=== PATIENT | female | born 1945 | race Caucasian/White ===

== ENCOUNTER 2016-06-22 13:07 | Emergency (ER) | payer OTHER ==
[2016-06-22] MEDS ORDERED: Albuterol/Ipratropium NEB.SOL* Albuterol 2.5 MG/Ipratropium 0.5 MG 3 ML INH ONE ×2 (14:25→16:01)
[2016-06-22 14:46] LABS: Hematocrit 40 % (35-47); Hemoglobin 13.4 g/dl (12.0-16.0); Mean Corpuscular HGB Conc 33 g/dl (31-36); Mean Corpuscular Hemoglobin 29 pg (27-31); Mean Corpuscular Volume 88 fL (80-97); Mean Platelet Volume 6 um3 (7.4-10.4); Red Blood Count 4.57 10^6/ul (4.0-5.4); Red Cell Distribution Width 13 % (10.5-15); White Blood Count 5.7 10^3/ul (3.5-10.8)
[2016-06-22 15:03] LABS: Troponin I 0.01 ng/mL (<0.04)
[2016-06-22 15:04] LABS: Albumin 4.2 g/dL (3.2-5.2); BUN/Creatinine Ratio 15.4 (8-20); Calcium 9.2 mg/dL (8.6-10.3); EGFR African American 93.1 (>60); EGFR Non-African American 72.4 (>60); Globulin 3.5 g/dL (2-4); Potassium 4.3 mmol/L (3.5-5.0); Total Bilirubin 0.6 mg/dL (0.2-1.0); Total Protein 7.7 g/dL (6.4-8.9)
--- NOTE | 2016-06-22 15:37 | RAD ---
HISTORY: Shortness of breath COMPARISONS: April 22, 2015 VIEWS: 2: Frontal dual-energy and lateral views of the chest. FINDINGS: CARDIOMEDIASTINAL SILHOUETTE: The cardiomediastinal silhouette is normal. BEULAH: The beulah are normal. PLEURA: The costophrenic angles are sharp. No pleural abnormalities are noted. LUNG PARENCHYMA: There is hyperinflation with flattening of the diaphragm and expansion of the AP diameter of the chest. ABDOMEN: The upper abdomen is clear. There is no subphrenic gas. BONES AND SOFT TISSUES: The patient is status post median sternotomy OTHER: None. IMPRESSION: HYPERINFLATION, CONSISTENT WITH COPD. NO ACTIVE CARDIOPULMONARY DISEASE.
[2016-06-22] MEDS ORDERED: methylPREDNISolone SOD SUCC* 125 MG 2 ML VIAL IV ONE (16:01)
[2016-06-22] MEDS ORDERED: Albuterol HFA INHALER* 8 gm MDI INH SCH (19:00)
[2016-06-22] MEDS ORDERED: Albuterol HFA INHALER* 8 gm MDI INH ONE (19:26)
[2016-06-22 19:43] VITALS: BP 154/70
--- NOTE | 2016-06-23 11:28 | ED ---
Lazaro Sahu Matthew, scribed for Celso Mcfarlane MD on 06/22/16 at 1548 . Shortness of Breath - HPI Summary HPI Summary: A 71 y/o female presents to the ED with SOB upon exertion since 3 weeks ago, which worsened in the last 2 days. Today, the patient had sudden SOB while trying to walk up a flight of stairs. She denies chest pain, cough, fever, chills, URI, and pedal edema. She is a former smoker and use to smoke a ppd for 40 years. Hx of COPD. She is not on home oxygen, but is on spiriva. She had a mitral valve replacement in 2005. The patient had a recent root canal for an infected tooth; however the root canal was unsuccessful and she has a follow-up appointment in [place]. - History of Current Complaint Chief Complaint: EDShortnessOfBreath Time Seen by Provider: 06/22/16 14:05 Hx Obtained From: Patient Onset/Duration: Lasting Days, Still Present Current Severity: Moderate Dyspnea At: Exertion Associated Signs & Symptoms: Negative - Allergy/Home Medications Allergies/Adverse Reactions: Allergies Allergy/AdvReac Type Severity Reaction Status Date / Time Levofloxacin [From Levaquin] Allergy Hives Verified 12/30/15 08:37 Nitrofurantoin Allergy Hives Verified 12/30/15 08:37 [From Macrobid] ADHESIVE GLUE Allergy Intermediate Rash Uncoded 12/30/15 08:37 PMH/Surg Hx/FS Hx/Imm Hx Endocrine/Hematology History: Denies: Hx Diabetes Cardiovascular History: Reports: Hx Valvular Heart Disease - 2005 MITRAL VALVE REPLACEMENT, Other Cardiovascular Problems/Disorders Denies: Hx Congestive Heart Failure, Hx Hypertension Respiratory History: Reports: Hx Asthma, Hx Chronic Obstructive Pulmonary Disease (COPD), Other Respiratory Problems/Disorders - COPD History: Reports: Hx Kidney Stones, Hx Renal Disease - KIDNEY STONES, Other Problems/Disorders - PRIOR KIDNEY STONES. Sensory History: Reports: Hx Cataracts - SURGERY, Hx Contacts or Glasses - GLASSES Denies: Hx Hearing Aid Opthamlomology History: Reports: Hx Cataracts - SURGERY, Hx Contacts or Glasses - GLASSES - Cancer History Hx Chemotherapy: No Hx Radiation Therapy: No - Surgical History Surgery Procedure, Year, and Place: PORCINE MITRAL VALVE, COLONIC POLYP REMOVED , STENT PLACEMENT FOR PRIOR URETERAL STONES. Hx Anesthesia Reactions: No Infectious Disease History: No Infectious Disease History: Denies: Traveled Outside the [place] in Last 30 Days - Family History Family History: No FHx of Breast CA - Social History Alcohol Use: Daily Alcohol Amount: 1 GLASS A DAY WINE Substance Use Type: Reports: None Smoking Status (MU): Former Smoker Review of Systems Constitutional: Negative Negative: Fever, Chills Eyes: Negative ENT: Negative Cardiovascular: Negative Negative: Chest Pain Positive: Shortness Of Breath. Negative: Cough Gastrointestinal: Negative Genitourinary: Negative Positive: no symptoms reported Musculoskeletal: Negative Negative: Edema Skin: Negative Neurological: Negative Psychological: Normal All Other Systems Reviewed And Are Negative: Yes Physical Exam Triage Information Reviewed: Yes Vital Signs On Initial Exam: Initial Vitals Temp Pulse Resp BP Pulse Ox 99 F 71 20 187/92 92 06/22/16 13:11 06/22/16 13:11 06/22/16 13:11 06/22/16 13:11 06/22/16 13:11 Vital Signs Reviewed: Yes Appearance: Positive: Well-Appearing, No Pain Distress Skin: Positive: Warm, Skin Color Reflects Adequate Perfusion, Dry Head/Face: Positive: Normal Head/Face Inspection Eyes: Positive: EOMI, ARELY ENT: Positive: Normal ENT inspection Neck: Positive: Supple, Nontender Respiratory/Lung Sounds: Positive: Decreased Breath Sounds, Wheezes Cardiovascular: Positive: RRR Abdomen Description: Positive: Nontender, Soft Bowel Sounds: Positive: Present Musculoskeletal: Positive: Strength/ROM Intact Neurological: Positive: Alert, Oriented to Person Place, Time Psychiatric: Positive: Affect/Mood Appropriate Diagnostics - Vital Signs Vital Signs Temp Pulse Resp BP Pulse Ox 06/22/16 14:09 99 F 71 20 187/92 92 06/22/16 13:11 99 F 71 20 187/92 92 - Laboratory Lab Results: Lab Results 06/22/16 06/22/16 06/22/16 Range/Units 14:34 14:34 14:34 WBC 5.7 (3.5-10.8) 10^3/ul RBC 4.57 (4.0-5.4) 10^6/ul Hgb 13.4 (12.0-16.0) g/dl Hct 40 (35-47) % MCV 88 (80-97) fL MCH 29 (27-31) pg MCHC 33 (31-36) g/dl RDW 13 (10.5-15) % Plt Count 261 (150-450) 10^3/ul MPV 6 L (7.4-10.4) um3 Neut % (Auto) 70.8 (38-83) % Lymph % (Auto) 15.1 L (25-47) % Gila % (Auto) 10.1 H (1-9) % Eos % (Auto) 3.3 (0-6) % Baso % (Auto) 0.7 (0-2) % Absolute Neuts (auto) 4.0 (1.5-7.7) 10^3/ul Absolute Lymphs (auto) 0.9 L (1.0-4.8) 10^3/ul Absolute Monos (auto) 0.6 (0-0.8) 10^3/ul Absolute Eos (auto) 0.2 (0-0.6) 10^3/ul Absolute Basos (auto) 0 (0-0.2) 10^3/ul Absolute Nucleated RBC 0.01 10^3/ul Nucleated RBC % 0.1 Sodium 138 (133-145) mmol/L Potassium 4.3 (3.5-5.0) mmol/L Chloride 104 (101-111) mmol/L Carbon Dioxide 32 (22-32) mmol/L Anion Gap 2 (2-11) mmol/L BUN 12 (6-24) mg/dL Creatinine 0.78 (0.51-0.95) mg/dL Est GFR ( Amer) 93.1 (>60) Est GFR (Non-Af Amer) 72.4 (>60) BUN/Creatinine Ratio 15.4 (8-20) Glucose 110 H (70-100) mg/dL Lactic Acid 0.5 (0.5-2.0) mmol/L Calcium 9.2 (8.6-10.3) mg/dL Total Bilirubin 0.60 (0.2-1.0) mg/dL AST 14 (13-39) U/L ALT 17 (7-52) U/L Alkaline Phosphatase 75 (34-104) U/L Troponin I 0.01 (<0.04) ng/mL Total Protein 7.7 (6.4-8.9) g/dL Albumin 4.2 (3.2-5.2) g/dL Globulin 3.5 (2-4) g/dL Albumin/Globulin Ratio 1.2 (1-3) Result Diagrams: 06/22/16 14:34 06/22/16 14:34 Lab Statement: Any lab studies that have been ordered have been reviewed, and results considered in the medical decision making process. - Radiology CXR Xray Interpretation: Positive (See Comments) - IMPRESSION: HYPERINFLATION, CONSISTENT WITH COPD. NO ACTIVE CARDIOPULMONARY DISEASE. Radiology Interpretation Completed By: Radiologist - EKG 13:17 Cardiac Rate: NL - 63 bpm EKG Rhythm: Sinus Rhythm EKG Comparison: No Significant Change - 04/21/05 Course/Dx - Course Course Of Treatment: Ms. Boyer presented with a couple days of SOB with exertion. She reported a long smoking history and a diagnosis of COPD on Spiriva only. No URI symptoms. She was very 'tight' on arrival and improved womewhat with nebs and steroids. I still felt that her breathing was borderline but she was subjevtively so iproved that she wanted to try it at home and I sent a script for a medrol dose pack and dispensed an albuterol inhaler. - Diagnoses Provider Diagnoses: COPD with exacerbation Discharge - Discharge Plan Condition: Stable Disposition: HOME Prescriptions: Methylprednisolone [Medrol Dosepak 4 MG*] 4 mg PO .SEE SUSAN INSTRUCTION #1 tab Patient Education Materials: Methylprednisolone (By mouth), Bronchospasm (ED) Referrals: Mandie Ortiz MD [Primary Care Provider] - 2 Days Additional Instructions: Please follow-up with your primary care physician. The documentation as recorded by the Lazaro doherty Matthew accurately reflects the service I personally performed and the decisions made by me, Celso Mcfarlane MD.
== END 2016-06-22 19:42 | disposition home or self-care (01) ==
LOC: ED 13:07
DX: J44.1 Chronic obstructive pulmonary disease with (acute) exacerbation (principal); R06.02 Shortness of breath; Z87.891 Personal history of nicotine dependence
CPT/HCPCS: 36415; 71020; 80053; 83605; 84484; 85025; 87040; 93005; 94640; 96374; 99283; A9270-GY; J2930

== ENCOUNTER 2019-11-28 13:49 | Observation (INO) ==
[2019-11-28 15:37] LABS: ABS Eosinophils 0.2 10^3/ul (0-0.6); ABS Monocytes 0.5 10^3/ul (0-0.8); ABS Neutrophils 4.9 10^3/ul (1.5-7.7); Hematocrit 41 % (35-47); Hemoglobin 14.2 g/dL (12.0-16.0); Lymphocyte % 14.5 %; Mean Corpuscular HGB Conc 34 g/dL (31-36); Mean Corpuscular Hemoglobin 30 pg (27-31); Mean Corpuscular Volume 88 fL (80-97); Mean Platelet Volume 5.7 fL (7.4-10.4); Nucleated Red Blood Cells % 0.1; Platelet Count 337 10^3/uL (150-450); Red Blood Count 4.67 10^6 /uL (3.70-4.87); Red Cell Distribution Width 14 % (10-15); White Blood Count 6.6 10^3/uL (3.5-10.8)
[2019-11-28 15:54] LABS: ALT 16 U/L (7-52); AST 17 U/L (13-39); Albumin 4.2 g/dL (3.2-5.2); Albumin/Globulin Ratio 1.3 (1-3); Alkaline Phosphatase 76 U/L (34-104); Anion Gap 6 mmol/L (2-11); BUN/Creatinine Ratio 18.3 (8-20); Blood Urea Nitrogen 15 mg/dL (6-24); CO2 Carbon Dioxide 30 mmol/L (22-32); Calcium 8.9 mg/dL (8.6-10.3); Chloride 102 mmol/L (101-111); EGFR Non-African American 67.8 (>60); Globulin 3.3 g/dL (2-4); Glucose 96 mg/dL (70-100); Potassium 4.3 mmol/L (3.5-5.0); Sodium 138 mmol/L (135-145); Total Protein 7.5 g/dL (6.4-8.9)
[2019-11-28 15:57] LABS: Troponin I 0.05 ng/mL (<0.03)
[2019-11-28] MEDS ORDERED: Albuterol 2.5mg/3 ml (0.083%) NEB.SOLN INH PRN (17:18)
[2019-11-28] MEDS ORDERED: Iodixanol (CONTRAST) 320 MG/ML 100 ML SDV IV ONE (17:19)
[2019-11-28] MEDS ORDERED: hydrALAZINE 20 mg/ml 1 ML Vial IV IV SLOW PU PRN (18:49)
[2019-11-28] MEDS ORDERED: Labetalol IV 5 MG/ML 20 ml VIAL IV PUSH ONE (18:58)
[2019-11-28 19:35] LABS: Troponin I 0.05 ng/mL (<0.03)
[2019-11-28 21:53] LABS: Troponin I 0.05 ng/mL (<0.03)
[2019-11-29 01:13] LABS: Magnesium 2.2 mg/dL (1.9-2.7)
[2019-11-29 05:55] LABS: ABS Eosinophils 0.2 10^3/ul (0-0.6); ABS Lymphocytes 1.2 10^3/ul (1.0-4.8); ABS Monocytes 0.6 10^3/ul (0-0.8); ABS Neutrophils 4.2 10^3/ul (1.5-7.7); Hematocrit 39 % (35-47); Hemoglobin 13.5 g/dL (12.0-16.0); Lymphocyte % 19.3 %; Mean Corpuscular HGB Conc 35 g/dL (31-36); Mean Corpuscular Hemoglobin 31 pg (27-31); Mean Corpuscular Volume 90 fL (80-97); Mean Platelet Volume 5.9 fL (7.4-10.4); Nucleated Red Blood Cells % 0.1; Platelet Count 276 10^3/uL (150-450); Red Blood Count 4.32 10^6 /uL (3.70-4.87); Red Cell Distribution Width 14 % (10-15); White Blood Count 6.3 10^3/uL (3.5-10.8)
[2019-11-29 06:14] LABS: BUN/Creatinine Ratio 22.1 (8-20); Calcium 8.9 mg/dL (8.6-10.3); EGFR African American 88.2 (>60); EGFR Non-African American 72.9 (>60); Potassium 4.1 mmol/L (3.5-5.0)
[2019-11-29 08:54] LABS: Magnesium 2.1 mg/dL (1.9-2.7)
[2019-11-29] MEDS ORDERED: Aspirin EC 81 mg TAB.EC (enteric coated) PO SCH (09:00)
[2019-11-29] MEDS ORDERED: CMCS:Epleronone 25 mg TAB (NF) PO SCH (09:00)
[2019-11-29] MEDS ORDERED: SPIRIVA Respimat (tiotropium) 2.5 mcg/inh Inhaler INH SCH (09:00)
[2019-11-29] MEDS ORDERED: Heparin 5000 UNITS/ML 1 mL VIAL SUBCUT SCH (14:00)
[2019-11-29 15:23] VITALS: BP 156/81
[2019-11-30] MEDS ORDERED: Influenza VAC *QUAD* 2020-21* 0.5 ML SYRINGE IM ONE (09:00)
== END 2019-11-29 18:38 | disposition home or self-care (01) ==
LOC: MEDTELE 13:49 → ED 13:49
PROVIDERS: ADMIT Pediatrics; ATTEND Pediatrics

== ENCOUNTER 2020-01-24 17:36 | Inpatient (IN) ==
[2020-01-24 19:13] LABS: ABS Eosinophils 0.2 10^3/ul (0-0.6); ABS Lymphocytes 1.4 10^3/ul (1.0-4.8); ABS Monocytes 0.6 10^3/ul (0-0.8); ABS Neutrophils 5.2 10^3/ul (1.5-7.7); Eosinophil % 3.3 %; Hematocrit 42 % (35-47); Hemoglobin 14.3 g/dL (12.0-16.0); Lymphocyte % 19.1 %; Mean Corpuscular HGB Conc 34 g/dL (31-36); Mean Corpuscular Hemoglobin 31 pg (27-31); Mean Corpuscular Volume 91 fL (80-97); Mean Platelet Volume 6.1 fL (7.4-10.4); Platelet Count 254 10^3/uL (150-450); Red Blood Count 4.62 10^6 /uL (3.70-4.87); Red Cell Distribution Width 14 % (10-15); White Blood Count 7.5 10^3/uL (3.5-10.8)
[2020-01-24 19:24] LABS: INR 1.1 (0.82-1.09)
[2020-01-24 19:34] LABS: Troponin I 0.01 ng/mL (<0.03)
[2020-01-24 19:55] LABS: Albumin/Globulin Ratio 1.3 (1-3); BUN/Creatinine Ratio 16.9 (8-20); Calcium 9.5 mg/dL (8.6-10.3); EGFR African American 74.6 (>60); EGFR Non-African American 61.7 (>60); Globulin 3.1 g/dL (2-4); Magnesium 2.1 mg/dL (1.9-2.7); Potassium 4.2 mmol/L (3.5-5.0); Total Bilirubin 0.6 mg/dL (0.2-1.0); Total Protein 7.1 g/dL (6.4-8.9)
[2020-01-24 20:10] LABS: TSH Ultra Thyroid Stim Horm 1.27 mcIU/mL (0.34-5.60)
[2020-01-24 20:12] LABS: Free T4 1.03 ng/dL (0.61-1.12)
[2020-01-24] MEDS ORDERED: methylPREDNISolone SOD 40 mg/ml 1 ml VIAL IV ONE (22:11)
[2020-01-24] MEDS ORDERED: Albuterol/Ipratropium NEB.SOL (2.5/0.5 MG) 3 ML NEB.SOLN INH PRN (22:18)
[2020-01-24] MEDS ORDERED: Albuterol/Ipratropium NEB.SOL (2.5/0.5 MG) 3 ML NEB.SOLN INH ONE (22:18)
[2020-01-25] MEDS: Enoxaparin 40 MG/0.4 ML SYR SUBCUT SCH ×2 (01:45→20:39)
[2020-01-25] MEDS ORDERED: methylPREDNISolone SOD 40 mg/ml 1 ml VIAL IV ONE (02:30)
[2020-01-25 07:21] LABS: ABS Lymphocytes 0.7 10^3/ul (1.0-4.8); ABS Monocytes 0.1 10^3/ul (0-0.8); ABS Neutrophils 6.3 10^3/ul (1.5-7.7); Eosinophil % 0.6 %; Hematocrit 40 % (35-47); Hemoglobin 13.7 g/dL (12.0-16.0); Lymphocyte % 9.7 %; Mean Corpuscular HGB Conc 34 g/dL (31-36); Mean Corpuscular Hemoglobin 31 pg (27-31); Mean Corpuscular Volume 90 fL (80-97); Mean Platelet Volume 6.5 fL (7.4-10.4); Platelet Count 244 10^3/uL (150-450); Red Blood Count 4.47 10^6 /uL (3.70-4.87); Red Cell Distribution Width 14 % (10-15); White Blood Count 7.2 10^3/uL (3.5-10.8)
[2020-01-25 07:24] LABS: Potassium 4.1 mmol/L (3.5-5.0)
[2020-01-25 07:30] LABS: BUN/Creatinine Ratio 22.2 (8-20); EGFR African American 83.2 (>60); EGFR Non-African American 68.7 (>60)
[2020-01-25] MEDS ORDERED: Regadenoson 0.4 MG/5 ML SYRINGE ONE (07:31)
[2020-01-25] MEDS ORDERED: CMCS: Epleronone 25 mg TAB (NF) PO SCH (09:00)
[2020-01-25] MEDS: SPIRIVA Respimat (tiotropium) 2.5 mcg/inh Inhaler INH SCH (09:10)
[2020-01-25] MEDS: Aspirin EC 81 mg TAB.EC (enteric coated) PO SCH (09:42)
[2020-01-25] MEDS ORDERED: NS 0.9% 1000 ml BAG 1,000 ML IV SCH ×2 (10:45→15:45)
[2020-01-25] MEDS ORDERED: Heparin 1,000 UNIT/ML 10 ml (10,000 UNITS) CATHLAB/DIALYSIS ONE (13:21)
[2020-01-25] MEDS ORDERED: Midazolam 5 mg/5 ml VIAL 1 mg/ml 5 ml VIAL (5 mg) ONE (13:21)
[2020-01-25] MEDS ORDERED: fentaNYL 100 mcg/2 ml 50 MCG/ML VIAL ONE (13:21)
[2020-01-25] MEDS ORDERED: nitroGLYCERIN DRIP 25,000 MCG/250 ML BTL ONE (13:21)
[2020-01-25] MEDS ORDERED: VERAPAMIL 2.5 MG/ML 2 ML VIAL ** 5 mg/2 ml ONE (13:21)
[2020-01-25] MEDS ORDERED: Heparin 2 UNITS/ML 1000 mls 2,000 ML IV ONE (13:21)
[2020-01-25] MEDS ORDERED: Lidocaine 1% VIAL 10 MG/ML VIAL ONE (13:21)
[2020-01-25] MEDS ORDERED: Iohexol 350 (CONTRAST) 200 ML MDV IV ONE (13:30)
[2020-01-25] MEDS ORDERED: Amiodarone IV 150 mg/3 ml VIAL ONE (13:48)
[2020-01-25] MEDS ORDERED: Amiodarone 360 MG IVPREMIX 0 MG/0 ML BAG IV ONE (13:48)
[2020-01-25] MEDS ORDERED: NS 0.9% 500 ml BAG 500 ML IV ONE (16:00)
[2020-01-26 05:19] LABS: ABS Lymphocytes 1.4 10^3/ul (1.0-4.8); ABS Monocytes 1.2 10^3/ul (0-0.8); Eosinophil % 0.1 %; Hematocrit 36 % (35-47); Hemoglobin 12.5 g/dL (12.0-16.0); Lymphocyte % 15.8 %; Mean Corpuscular HGB Conc 35 g/dL (31-36); Mean Corpuscular Hemoglobin 31 pg (27-31); Mean Corpuscular Volume 90 fL (80-97); Mean Platelet Volume 6.1 fL (7.4-10.4); Platelet Count 220 10^3/uL (150-450); Red Blood Count 4.03 10^6 /uL (3.70-4.87); Red Cell Distribution Width 14 % (10-15); White Blood Count 8.7 10^3/uL (3.5-10.8)
[2020-01-26 05:35] LABS: BUN/Creatinine Ratio 18.6 (8-20); Calcium 8.4 mg/dL (8.6-10.3); EGFR African American 77.6 (>60); EGFR Non-African American 64.2 (>60)
[2020-01-26] MEDS: SPIRIVA Respimat (tiotropium) 2.5 mcg/inh Inhaler INH SCH (07:51)
[2020-01-26] MEDS: Aspirin EC 81 mg TAB.EC (enteric coated) PO SCH (08:17)
[2020-01-26] MEDS ORDERED: CMCS: Epleronone 25 mg TAB (NF) PO SCH (09:00)
[2020-01-26 13:02] VITALS: BP 145/67
== END 2020-01-26 14:05 | disposition home or self-care (01) | DRG 287 ==
LOC: ED 17:36 → MEDTELE 21:53
PROVIDERS: ADMIT Internal Medicine; ATTEND Internal Medicine

== ENCOUNTER 2021-10-21 09:10 | Inpatient (IN) ==
[2021-10-21] MEDS ORDERED: Lactated Ringers 1000 ml BAG 1,000 ML IV ONE ×4 (09:16→21:35)
[2021-10-21 09:31] LABS: ABS Eosinophils 0.2 10^3/ul (0-0.6); ABS Lymphocytes 0.9 10^3/ul (1.0-4.8); ABS Monocytes 0.9 10^3/ul (0-0.8); Eosinophil % 2.3 %; Hematocrit 31 % (35-47); Hemoglobin 10.7 g/dL (12.0-16.0); Lymphocyte % 10.8 %; Mean Corpuscular HGB Conc 35 g/dL (31-36); Mean Corpuscular Hemoglobin 31 pg (27-31); Mean Corpuscular Volume 90 fL (80-97); Mean Platelet Volume 6.4 fL (7.4-10.4); Platelet Count 262 10^3/uL (150-450); Red Blood Count 3.42 10^6 /uL (3.70-4.87); Red Cell Distribution Width 14 % (10-15); White Blood Count 7.9 10^3/uL (3.5-10.8)
[2021-10-21 09:52] LABS: Activated Partial Thrombo Time 32.7 seconds (26.0-38.0); INR 1.03 (0.89-1.11)
[2021-10-21] MEDS ORDERED: Iodixanol (CONTRAST) 320 MG/ML 100 ML SDV IV ONE (09:59)
[2021-10-21 10:09] LABS: Albumin 3.8 g/dL (3.2-5.2); Albumin/Globulin Ratio 1.4 (1-3); Calcium 8.8 mg/dL (8.6-10.3); Globulin 2.8 g/dL (2-4); Potassium 3.8 mmol/L (3.5-5.0); Total Bilirubin 0.8 mg/dL (0.2-1.0); Total Protein 6.6 g/dL (6.4-8.9); eGFR CKD-EPI 29.1 (>60)
[2021-10-21] MEDS ORDERED: Morphine 4 MG/ML VIAL (1 ml) IV ONE (10:51)
[2021-10-21 10:56] LABS: High Sensitivity Troponin 1 Hr 32 pg/mL (<15)
[2021-10-21] MEDS ORDERED: Ondansetron 4 mg VIAL 2 MG/ML 2 ml VIAL ONE (11:17)
[2021-10-21] MEDS ORDERED: Ondansetron 4 mg VIAL 2 MG/ML 2 ml VIAL IV ONE (11:18)
[2021-10-21 12:21] LABS: High Sensitivity Troponin 3 Hr 43 pg/mL (<15)
[2021-10-21 12:34] LABS: Calcium 8.1 mg/dL (8.6-10.3)
[2021-10-21 12:39] LABS: eGFR CKD-EPI 36.9 (>60)
[2021-10-21 13:02] LABS: Urine Appearance Clear; Urine Bilirubin Negative (Negative); Urine Blood 1+ (Small) (Negative); Urine Color Yellow; Urine Glucose Negative (Negative); Urine Ketones Negative (Negative); Urine Nitrite Negative (Negative); Urine Protein 2+ (100 mg/dL) (Negative); Urine Urobilinogen 0.2 (Negative) (Negative)
[2021-10-21 13:09] LABS: Urine Bacteria Absent (Absent); Urine Red Blood Cell Trace(0-2/hpf) (Absent); Urine Squamous Epithelial Cell Present (Absent); Urine White Blood Cell Trace(0-5/hpf) (Absent)
[2021-10-21 13:10] LABS: Potassium 3.9 mmol/L (3.5-5.0)
[2021-10-21 15:35] LABS: C Reactive Protein 4.7 mg/L (<8.01)
[2021-10-21] MEDS ORDERED: NS 0.9% 1000 ml BAG 1,000 ML IV SCH (16:30)
[2021-10-21] MEDS ORDERED: Albuterol HFA INHALER 8 gm MDI INH PRN (16:36)
[2021-10-21 17:26] LABS: HDL Cholesterol 43.8 mg/dL
[2021-10-21 17:40] LABS: TSH Ultra Thyroid Stim Horm 0.93 mcIU/mL (0.34-5.60)
[2021-10-21 20:59] LABS: Erythrocyte Sed Rate 46 mm/Hr (0-29)
[2021-10-21] MEDS ORDERED: Heparin 5000 UNITS/ML 1 mL VIAL SUBCUT SCH (21:00)
[2021-10-21] MEDS: Mometasone/Formoter 200/5 MDI INH SCH (21:54)
[2021-10-21 23:08] LABS: Urine Creatinine Concentration 69.15 mg/dL
[2021-10-21] MEDS ORDERED: Lactated Ringers 1000 ml BAG 1,000 ML IV SCH (23:45)
[2021-10-22] MEDS: Heparin 5000 UNITS/ML 1 mL VIAL SUBCUT SCH ×3 (01:49→20:33)
[2021-10-22 06:08] LABS: ABS Eosinophils 0.2 10^3/ul (0-0.6); ABS Lymphocytes 0.9 10^3/ul (1.0-4.8); ABS Monocytes 0.7 10^3/ul (0-0.8); ABS Neutrophils 3.6 10^3/ul (1.5-7.7); Eosinophil % 3.9 %; Hematocrit 25 % (35-47); Hemoglobin 8.2 g/dL (12.0-16.0); Lymphocyte % 16.9 %; Mean Corpuscular HGB Conc 34 g/dL (31-36); Mean Corpuscular Hemoglobin 30 pg (27-31); Mean Corpuscular Volume 90 fL (80-97); Mean Platelet Volume 6.1 fL (7.4-10.4); Platelet Count 173 10^3/uL (150-450); Red Blood Count 2.73 10^6 /uL (3.70-4.87); Red Cell Distribution Width 14 % (10-15); White Blood Count 5.5 10^3/uL (3.5-10.8)
[2021-10-22 07:11] LABS: HDL Cholesterol 46.7 mg/dL; Potassium 3.9 mmol/L (3.5-5.0); eGFR CKD-EPI 45.9 (>60)
[2021-10-22] MEDS: Mometasone/Formoter 200/5 MDI INH SCH ×2 (07:25→19:54)
[2021-10-22] MEDS: SPIRIVA Respimat (tiotropium) 2.5 mcg/inh Inhaler INH SCH (07:25)
[2021-10-22 11:09] LABS: Erythrocyte Sed Rate 24 mm/Hr (0-29)
[2021-10-22 15:32] LABS: High Sensitivity Troponin 1 Hr 79 pg/mL (<15)
[2021-10-23] MEDS: SPIRIVA Respimat (tiotropium) 2.5 mcg/inh Inhaler INH SCH (07:11)
[2021-10-23] MEDS: Mometasone/Formoter 200/5 MDI INH SCH ×2 (07:11→20:01)
[2021-10-23] MEDS: Heparin 5000 UNITS/ML 1 mL VIAL SUBCUT SCH ×3 (08:03→20:34)
[2021-10-23 09:10] LABS: ABS Eosinophils 0.2 10^3/ul (0-0.6); ABS Lymphocytes 0.7 10^3/ul (1.0-4.8); ABS Monocytes 0.5 10^3/ul (0-0.8); ABS Neutrophils 3.4 10^3/ul (1.5-7.7); Eosinophil % 3.8 %; Hematocrit 25 % (35-47); Hemoglobin 8.6 g/dL (12.0-16.0); Lymphocyte % 14.4 %; Mean Corpuscular HGB Conc 35 g/dL (31-36); Mean Corpuscular Hemoglobin 31 pg (27-31); Mean Corpuscular Volume 90 fL (80-97); Mean Platelet Volume 6.4 fL (7.4-10.4); Platelet Count 178 10^3/uL (150-450); Red Blood Count 2.75 10^6 /uL (3.70-4.87); Red Cell Distribution Width 13 % (10-15); White Blood Count 4.8 10^3/uL (3.5-10.8)
[2021-10-23 10:03] LABS: Calcium 8.5 mg/dL (8.6-10.3); Potassium 3.9 mmol/L (3.5-5.0); eGFR CKD-EPI 51.4 (>60)
[2021-10-23 10:18] LABS: Ferritin 253.2 ng/mL (11-307)
[2021-10-23] MEDS ORDERED: Midazolam 10 mg/10 ml VIAL 1 mg/ml 10 ml VIAL (10 mg) ONE (16:19)
[2021-10-23] MEDS ORDERED: fentaNYL 100 mcg/2 ml 50 MCG/ML VIAL ONE (16:19)
[2021-10-24 06:47] LABS: Hematocrit 23 % (35-47); Hemoglobin 7.8 g/dL (12.0-16.0); Mean Corpuscular HGB Conc 34 g/dL (31-36); Mean Corpuscular Hemoglobin 31 pg (27-31); Mean Corpuscular Volume 89 fL (80-97); Mean Platelet Volume 6.2 fL (7.4-10.4); Platelet Count 175 10^3/uL (150-450); Red Blood Count 2.56 10^6 /uL (3.70-4.87); Red Cell Distribution Width 14 % (10-15)
[2021-10-24 07:11] LABS: Calcium 8.1 mg/dL (8.6-10.3); Potassium 3.6 mmol/L (3.5-5.0); eGFR CKD-EPI 46.3 (>60)
[2021-10-24] MEDS: SPIRIVA Respimat (tiotropium) 2.5 mcg/inh Inhaler INH SCH (07:29)
[2021-10-24] MEDS: Mometasone/Formoter 200/5 MDI INH SCH ×2 (07:29→20:05)
[2021-10-24 07:35] LABS: ABS Eosinophils 0.2 10^3/ul (0-0.6); ABS Lymphocytes 0.7 10^3/ul (1.0-4.8); ABS Monocytes 0.5 10^3/ul (0-0.8); ABS Neutrophils 3.5 10^3/ul (1.5-7.7); Eosinophil % 4.5 %; Lymphocyte % 14.3 %
[2021-10-24] MEDS: Heparin 5000 UNITS/ML 1 mL VIAL SUBCUT SCH ×2 (08:36→20:00)
[2021-10-24] MEDS ORDERED: Iron Sucrose 200 MG in NS 0.9% 100 ml BAG 100 ML IVPB ONE (09:30)
[2021-10-24] MEDS ORDERED: Polyethylene Glycol 3350 17 GM PACKET PO PRN (20:04)
[2021-10-25] MEDS: Heparin 5000 UNITS/ML 1 mL VIAL SUBCUT SCH (07:26)
[2021-10-25] MEDS: SPIRIVA Respimat (tiotropium) 2.5 mcg/inh Inhaler INH SCH (07:44)
[2021-10-25] MEDS: Mometasone/Formoter 200/5 MDI INH SCH ×2 (07:44→19:40)
[2021-10-25 08:06] LABS: Hematocrit 24 % (35-47); Hemoglobin 8.2 g/dL (12.0-16.0); Mean Corpuscular HGB Conc 35 g/dL (31-36); Mean Corpuscular Hemoglobin 31 pg (27-31); Mean Corpuscular Volume 90 fL (80-97); Mean Platelet Volume 6.3 fL (7.4-10.4); Platelet Count 182 10^3/uL (150-450); Red Blood Count 2.64 10^6 /uL (3.70-4.87); Red Cell Distribution Width 14 % (10-15); White Blood Count 4.5 10^3/uL (3.5-10.8)
[2021-10-25 08:07] LABS: Hematocrit 24 % (35-47); Hemoglobin 8.2 g/dL (12.0-16.0); Mean Corpuscular HGB Conc 35 g/dL (31-36); Mean Corpuscular Hemoglobin 31 pg (27-31); Mean Corpuscular Volume 89 fL (80-97); Mean Platelet Volume 6.3 fL (7.4-10.4); Platelet Count 181 10^3/uL (150-450); Red Blood Count 2.63 10^6 /uL (3.70-4.87); Red Cell Distribution Width 13 % (10-15); White Blood Count 4.5 10^3/uL (3.5-10.8)
[2021-10-25 08:55] LABS: ABS Eosinophils 0.2 10^3/ul (0-0.6); ABS Monocytes 0.5 10^3/ul (0-0.8); ABS Neutrophils 2.7 10^3/ul (1.5-7.7); Eosinophil % 5.4 %; Lymphocyte % 21.6 %; Nucleated Red Blood Cells % 0.1
[2021-10-25] MEDS ORDERED: PAIN RELIEVING RUB (MENTHOL/SALICYLATE) 1 APPLIC TUBE TOPICAL PRN (14:36)
[2021-10-25 16:00] VITALS: BP 128/60
[2021-10-26] MEDS: Mometasone/Formoter 200/5 MDI INH SCH (07:10)
[2021-10-26] MEDS: SPIRIVA Respimat (tiotropium) 2.5 mcg/inh Inhaler INH SCH (07:10)
== END 2021-10-25 16:45 | disposition home or self-care (01) | DRG 311 ==
LOC: EDHOLD 09:10 → ED 09:10 → SUATTDRO 16:28 → MEDTELE 19:26 → SUATTDRO 10-23 15:26
PROVIDERS: ADMIT Hospitalist; ATTEND Internal Medicine

== ENCOUNTER 2024-01-17 19:23 | Observation (INO) ==
[2024-01-17 20:38] LABS: ABS Eosinophils 0.3 10^3/uL (0.0-0.5); ABS Lymphocytes 0.6 10^3/uL (1.0-4.8); ABS Monocytes 0.9 10^3/uL (0.0-0.9); ABS Neutrophils 6.7 10^3/uL (1.5-7.6); Eosinophil % 3.2 %; Hematocrit 32.7 % (35-45); Hemoglobin 11.2 g/dL (11.5-14.3); Lymphocyte % 7.1 %; Mean Corpuscular Hemoglobin 31.5 pg (27-33); Mean Corpuscular Hgb Conc 34.2 g/dL (31-36); Mean Corpuscular Volume 92.1 fL (80-97); Mean Platelet Volume 6.3 fL (7.5-11.2); Platelet Count 223 10^3/uL (150-450); Red Blood Count 3.56 10^6/uL (3.63-4.92); Red Cell Distribution Width 14.3 % (12-17); White Blood Count 8.5 10^3/uL (3.8-11.8)
[2024-01-17 20:54] LABS: Activated Partial Thrombo Time 33.4 seconds (26.0-38.0); INR 1.15 (0.85-1.14)
[2024-01-17 21:02] LABS: Albumin 4.2 g/dL (3.2-5.2); Albumin/Globulin Ratio 1.4 (1-3); C Reactive Protein 40.5 mg/L (<8.01); Calcium 8.8 mg/dL (8.6-10.3); Creatinine, Serum 1.27 mg/dL (0.51-0.95); Potassium 3.2 mmol/L (3.5-5.0); Total Bilirubin 0.6 mg/dL (0.2-1.0); Total Protein 7.2 g/dL (6.4-8.9); eGFR CKD-EPI 42.8 (>60)
[2024-01-17 21:06] LABS: Urine Appearance Clear; Urine Bilirubin Negative (Negative); Urine Blood Trace (Negative); Urine Color Colorless; Urine Glucose 4+ (>=1000 mg/dL) (Negative); Urine Ketones Negative (Negative); Urine Nitrite Negative (Negative); Urine Protein Negative (Negative); Urine Urobilinogen Negative (Negative)
[2024-01-17] MEDS: Potassium Chlor 20 meq TAB.ER PO ONE (21:12)
[2024-01-17] MEDS: cefTRIAXone 1 gm/50 mL D5W 1 GM/50 ML BAG IV ONE (21:58)
[2024-01-17 22:11] LABS: High Sensitivity Troponin 1 Hr 11 pg/mL (<15)
[2024-01-17] MEDS: Midazolam 2 mg/2 ml VIAL 1 mg/ml 2 ml VIAL (2 mg) IV SLOW PU ONE (22:37)
[2024-01-17] MEDS: Gadoteridol (CONTRAST) 279.3 MG/ML 10 ML IV ONE (23:20)
[2024-01-18] MEDS: Azithromycin 500 mg/250 ml NS 500 MG/250 ML BAG IVPB ONE (00:18)
[2024-01-18] MEDS: Albuterol/Ipratropium NEB.SOL (2.5/0.5 MG) 3 ML NEB.SOLN INH PRN (09:31)
[2024-01-18] MEDS: methylPREDNISolone SOD SUCC 125 mg 2 ML VIAL IV ONE (09:46)
[2024-01-18] MEDS: Enoxaparin 40 MG/0.4 ML SYR SUBCUT SCH (12:35)
[2024-01-18] MEDS ORDERED: Albuterol HFA INHALER 8 gm MDI INH PRN (14:16)
[2024-01-18] MEDS: Lidocaine PATCH 5% PATCH TRANSDERM SCH (15:49)
[2024-01-18 16:41] LABS: Vitamin D Total 25(OH) 32.8 ng/mL (20-50)
[2024-01-18] MEDS: CMCS: FLUTICAS/UMECLI/VILANT 200-62.5-25 MDI (NF) INH SCH (16:59)
[2024-01-19 07:49] LABS: ABS Lymphocytes 0.7 10^3/uL (1.0-4.8); ABS Monocytes 0.9 10^3/uL (0.0-0.9); ABS Neutrophils 5.8 10^3/uL (1.5-7.6); Hematocrit 27.9 % (35-45); Hemoglobin 9.7 g/dL (11.5-14.3); Mean Corpuscular Hemoglobin 31.9 pg (27-33); Mean Corpuscular Hgb Conc 34.9 g/dL (31-36); Mean Corpuscular Volume 91.6 fL (80-97); Mean Platelet Volume 6.4 fL (7.5-11.2); Platelet Count 201 10^3/uL (150-450); Red Blood Count 3.04 10^6/uL (3.63-4.92); Red Cell Distribution Width 14.1 % (12-17); White Blood Count 7.3 10^3/uL (3.8-11.8)
[2024-01-19] MEDS: FLUTICAS/UMECLI/VILANT 200-62.5-25 MDI (NF) INH SCH (07:52)
[2024-01-19 08:00] LABS: Calcium 8.4 mg/dL (8.6-10.3); Creatinine, Serum 1.19 mg/dL (0.51-0.95); Magnesium 2.3 mg/dL (1.9-2.7); Potassium 3.7 mmol/L (3.5-5.0); eGFR CKD-EPI 46.2 (>60)
[2024-01-19] MEDS: Aspirin EC 81 mg TAB.EC (enteric coated) PO SCH (09:08)
[2024-01-19] MEDS: Potassium Chlor 20 meq TAB.ER PO SCH (09:18)
[2024-01-19] MEDS: cefTRIAXone 1 gm/50 mL D5W 1 GM/50 ML BAG IV SCH (09:19)
[2024-01-19] MEDS: Azithromycin 500 mg/250 ml NS 500 MG/250 ML BAG IVPB SCH (10:09)
[2024-01-20 06:40] LABS: ABS Eosinophils 0.1 10^3/uL (0.0-0.5); ABS Monocytes 0.9 10^3/uL (0.0-0.9); ABS Neutrophils 6.6 10^3/uL (1.5-7.6); Eosinophil % 0.8 %; Hematocrit 27.4 % (35-45); Hemoglobin 9.7 g/dL (11.5-14.3); Lymphocyte % 11.6 %; Mean Corpuscular Hemoglobin 32.2 pg (27-33); Mean Corpuscular Hgb Conc 35.2 g/dL (31-36); Mean Corpuscular Volume 91.5 fL (80-97); Mean Platelet Volume 6.5 fL (7.5-11.2); Platelet Count 228 10^3/uL (150-450); Red Cell Distribution Width 15.1 % (12-17); White Blood Count 8.6 10^3/uL (3.8-11.8)
[2024-01-20 07:13] LABS: Calcium 8.4 mg/dL (8.6-10.3); Creatinine, Serum 1.11 mg/dL (0.51-0.95); Magnesium 2.4 mg/dL (1.9-2.7); Potassium 3.7 mmol/L (3.5-5.0); eGFR CKD-EPI 50.2 (>60)
[2024-01-20] MEDS: Potassium Chlor 10 meq TAB PO ONE (07:20)
[2024-01-20 08:59] LABS: TSH Ultra Thyroid Stim Horm 0.29 mcIU/mL (0.34-5.60)
[2024-01-20 09:10] LABS: Folate 4.13 ng/mL (5.90-24.80)
[2024-01-20] MEDS: Cyanocobalamin INJ 1,000 MCG/ML VIAL 1 ML VIAL IM ONE (11:16)
[2024-01-21] MEDS: Acetaminophen IV 1 GM/100ML 1,000 MG/100 ML BAG IV PRN (02:09)
[2024-01-21 07:29] LABS: ABS Eosinophils 0.8 10^3/uL (0.0-0.5); ABS Lymphocytes 1.4 10^3/uL (1.0-4.8); ABS Monocytes 0.7 10^3/uL (0.0-0.9); ABS Neutrophils 4.7 10^3/uL (1.5-7.6); Eosinophil % 10.5 %; Hematocrit 29.9 % (35-45); Hemoglobin 10.3 g/dL (11.5-14.3); Lymphocyte % 18.1 %; Mean Corpuscular Hgb Conc 34.3 g/dL (31-36); Mean Corpuscular Volume 93.3 fL (80-97); Mean Platelet Volume 6.2 fL (7.5-11.2); Nucleated Red Blood Cells % 0.1 %/100WBC (0.0-0.8); Platelet Count 230 10^3/uL (150-450); Red Blood Count 3.21 10^6/uL (3.63-4.92); Red Cell Distribution Width 14.5 % (12-17); White Blood Count 7.7 10^3/uL (3.8-11.8)
[2024-01-21 08:02] LABS: Calcium 8.5 mg/dL (8.6-10.3); Creatinine, Serum 1.12 mg/dL (0.51-0.95); Magnesium 2.4 mg/dL (1.9-2.7); Potassium 4.7 mmol/L (3.5-5.0); eGFR CKD-EPI 49.7 (>60)
[2024-01-21 14:06] VITALS: BP 137/70
== END 2024-01-21 16:00 | disposition home or self-care (01) ==
LOC: EDHOLD 19:23 → ED 19:23 → SUATTDRO 01-18 11:57 → MED 01-18 13:13
PROVIDERS: ADMIT Student in an Organized Health Care Education/Training Program; ATTEND Internal Medicine